=== PATIENT | female | born 1960 | race Caucasian/White ===

== ENCOUNTER 2020-06-22 15:52 | Outpatient (REF) | payer BC, SELFPAY ==
--- NOTE | ~2020-06-22 | XR_ITS ---
EXAMINATION: XR ANKLE, RIGHT CLINICAL INFORMATION: Pain COMPARISON: None TECHNIQUE: AP, lateral, and mortise views of the right ankle. FINDINGS: Bone alignment is normal. No acute fracture or dislocation is seen. There are well-corticated soft tissue ossifications inferior to the medial and lateral malleolar likely related to old trauma. There is an osteophyte at the anterior tibiotalar joint. The ankle mortise is otherwise normal. There is a soft tissue calcification posterior to the calcaneus. There is calcaneal spurs. There may be diffuse soft tissue swelling. XR/XR ankle RT 2V IMPRESSION: No acute fracture or dislocation seen. 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
[2020-06-22 18:39] LABS: Uric Acid 4.9 mg/dL (2.4-5.7)
== END 2020-06-22 15:53 | disposition home or self-care (01) ==
LOC: HO.MANLDS 15:52
PROVIDERS: PCP Internal Medicine; Visit Provider Physician Assistant
DX: M25.571 Pain in right ankle and joints of right foot (principal)
CPT/HCPCS: 36415; 73600; 84550

== ENCOUNTER → 2020-06-28 09:38 | Outpatient (BNVA) | payer BC, SELFPAY | PROVIDERS: PCP Internal Medicine; Visit Provider Internal Medicine Cardiovascular Disease | DX: E78.5 Hyperlipidemia, unspecified (principal) | CPT/HCPCS: 93005 ==

== ENCOUNTER 2020-07-09 09:40 | Outpatient (REF) | payer BC, SELFPAY ==
[2020-07-09 11:28] LABS: MANUAL DIFF FLAG NO
[2020-07-09 11:45] LABS: Basophils Percent Auto 0.7 % (0-2); Eosinophils Absolute Auto 0.2 X10*3/uL (0.0-0.4); Eosinophils Percent Auto 2.9 % (0-4); Hematocrit 39.4 % (37-47); Imm Gran Abs Auto 0.01 X10*3/uL (0.00-0.03); Imm Gran Pct Auto 0.2 % (0.0-0.4); Lymphocytes Percent Auto 19.1 % (20-40); Mean Corpuscular Hemoglobin 31.8 pg (27.0-33.0); Mean Corpuscular Volume 96.3 fL (80-98); Mean Platelet Volume 10.5 fL (9.4-12.3); Monocytes Absolute Auto 0.5 X10*3/uL (0.1-1.2); Monocytes Percent Auto 8.3 % (2-11); Neutrophils Absolute Auto 3.8 X10*3/uL (2.0-8.3); Neutrophils Percent Auto 68.8 % (45-73); Platelet Count 209 X10*3/uL (160-400); Red Blood Count 4.09 X10*6/uL (4.20-5.50); Red Cell Distribution Width 13.1 % (11.0-16.0); White Blood Count 5.5 X10*3/uL (4.8-10.8)
[2020-07-09 12:14] LABS: Alanine Aminotransferase 22 U/L (0-31); Albumin Level 4.1 g/dL (3.5-5.0); Alkaline Phosphatase 83 U/L (39-117); Anion Gap 14 (12-20); Aspartate Amino Transferase 18 U/L (5-31); Bilirubin Total 1.7 mg/dL (0.0-1.0); Blood Urea Nitrogen 12 mg/dL (9-16); Carbon Dioxide 24 mmol/L (22-29); Chloride 108 mmol/L (96-108); Cholesterol 151 mg/dL; Estimated Glomerular Filt Rate > 60; Free T4 (Free Thyroxine) 0.99 ng/dL (0.71-1.85); Glucose Fasting 97 mg/dL (60-99); HDL Cholesterol 56 mg/dL; LDL Cholesterol Calculated 69 mg/dl; Sodium 142 mmol/L (135-145); Thyroid Stimulating Hormone 1.84 uIU/mL (0.32-4.0); Total Protein 6.7 g/dL (6.5-8.0); Triglycerides 132 mg/dL
== END 2020-07-09 09:41 | disposition home or self-care (01) ==
LOC: HO.MANLDS 09:40
PROVIDERS: PCP Internal Medicine; Visit Provider Physician Assistant
DX: Z00.00 Encounter for general adult medical examination without abnormal findings (principal)
CPT/HCPCS: 36415; 80053; 80061; 84439; 84443; 85025

== ENCOUNTER 2020-09-10 11:48 | Outpatient (REF) | payer BC, SELFPAY ==
--- NOTE | ~2020-09-10 | MM_ITS ---
EXAMINATION: MM SCREENING DIGITAL BREAST TOMOSYNTHESIS, BILATERAL CLINICAL INFORMATION: Screening. Asymptomatic. The lifetime risk of breast cancer based on the Tyrer-Cuzick Model is 9%. COMPARISON: Mammography: 08/22/2019, 04/23/2018, 04/19/2018, 04/09/2017 TECHNIQUE: Digital breast tomosynthesis is performed in both the craniocaudal and mediolateral oblique views along with computer-aided detection (CAD). Synthesized 2D images are generated from the tomosynthesis. Additional right CC view is provided. FINDINGS: There are scattered areas of fibroglandular density (ACR BI-RADS breast composition Category b). There are no significant masses, abnormal calcifications, or other abnormalities. Parenchymal pattern is similar to prior exams. No developing density. The axilla and skin contours are unremarkable. MM/MM tomosynthesis screening BI IMPRESSION: No mammographic evidence of malignancy. ASSESSMENT: BI-RADS 1: Negative RECOMMENDATION: Routine annual mammography screening. This patient's information was entered into a reminder system with a target due date for their next mammogram.
== END 2020-09-10 11:49 | disposition home or self-care (01) ==
LOC: HO.MAMMO 11:48
PROVIDERS: Visit Provider Internal Medicine
DX: Z12.31 Encounter for screening mammogram for malignant neoplasm of breast (principal)
CPT/HCPCS: 77063; 77067

== ENCOUNTER 2021-09-13 09:28 | Outpatient (REF) | payer BC, SELFPAY ==
--- NOTE | ~2021-09-13 | MM_ITS ---
EXAMINATION: MM SCREENING DIGITAL BREAST TOMOSYNTHESIS, BILATERAL CLINICAL INFORMATION: Screening. Asymptomatic. The lifetime risk of breast cancer based on the Tyrer-Cuzick Model is 8%. COMPARISON: Mammography: 09/10/2020, 08/22/2019, 04/23/2018, 04/19/2018 TECHNIQUE: Digital breast tomosynthesis is performed in both the craniocaudal and mediolateral oblique views along with computer-aided detection (CAD). Synthesized 2D images are generated from the tomosynthesis. FINDINGS: There are scattered areas of fibroglandular density (ACR BI-RADS breast composition Category b). There are no significant masses, abnormal calcifications, or other abnormalities. Parenchymal pattern is similar to prior studies. There is no developing density or architectural abnormality. The axilla and skin contours are unremarkable. No significant changes. MM/MM tomosynthesis screening BI IMPRESSION: No mammographic evidence of malignancy. ASSESSMENT: BI-RADS 1: Negative RECOMMENDATION: Routine annual mammography screening. This patient's information was entered into a reminder system with a target due date for their next mammogram.
== END 2021-09-13 09:29 | disposition home or self-care (01) ==
LOC: HO.MAMMO 09:28
PROVIDERS: Visit Provider Internal Medicine
DX: Z12.31 Encounter for screening mammogram for malignant neoplasm of breast (principal)
CPT/HCPCS: 77063; 77067

== ENCOUNTER 2021-12-16 09:27 | Outpatient (REF) | payer BC, SELFPAY ==
[2021-12-16 11:28] LABS: MANUAL DIFF FLAG NO
[2021-12-16 11:44] LABS: Basophils Percent Auto 0.5 % (0-2); Eosinophils Absolute Auto 0.1 X10*3/uL (0.0-0.4); Eosinophils Percent Auto 2.2 % (0-4); Hemoglobin 13.8 g/dl (12.0-16.0); Imm Gran Abs Auto 0.02 X10*3/uL (0.00-0.03); Imm Gran Pct Auto 0.3 % (0.0-0.4); Lymphocytes Absolute Auto 1.3 X10*3/uL (1.2-4.9); Lymphocytes Percent Auto 21.3 % (20-40); Mean Corpuscular HGB Conc 33.7 g/dl (31.0-35.0); Mean Corpuscular Hemoglobin 32.5 pg (27.0-33.0); Mean Corpuscular Volume 96.7 fL (80.0-98.0); Mean Platelet Volume 10.6 fL (9.4-12.3); Monocytes Absolute Auto 0.6 X10*3/uL (0.1-1.2); Monocytes Percent Auto 10.1 % (2-11); Neutrophils Absolute Auto 3.8 x10*3/uL (2.0-8.3); Neutrophils Percent Auto 65.6 % (45-73); Platelet Count 212 X10*3/uL (160-400); Red Blood Count 4.24 X10*6/uL (4.20-5.50); Red Cell Distribution Width 12.8 % (11.0-16.0); White Blood Count 5.9 X10*3/uL (4.8-10.8)
[2021-12-16 12:25] LABS: Free T4 (Free Thyroxine) 1.04 ng/dL (0.71-1.85); Thyroid Stimulating Hormone 1.32 uIU/mL (0.32-4.0)
[2021-12-16 12:44] LABS: Alanine Aminotransferase 17 U/L (0-31); Albumin Level 4.4 g/dL (3.5-5.0); Alkaline Phosphatase 95 U/L (39-117); Anion Gap 14 (12-20); Aspartate Amino Transferase 15 U/L (5-31); Bilirubin Total 1.8 mg/dL (0.0-1.0); Blood Urea Nitrogen 13 mg/dL (9-16); Calcium 9.3 mg/dL (8.4-10.2); Carbon Dioxide 27 mmol/L (22-29); Chloride 105 mmol/L (96-108); Cholesterol 151 mg/dL; Estimated Glomerular Filt Rate > 60; Glucose Random 97 mg/dL (60-115); HDL Cholesterol 59 mg/dL; LDL Cholesterol Calculated 73 mg/dl; Potassium 4.1 mmol/L (3.3-5.1); Sodium 142 mmol/L (135-145); Total Protein 7.2 g/dL (6.5-8.0); Triglycerides 99 mg/dL
== END 2021-12-16 09:28 | disposition home or self-care (01) ==
LOC: HO.WFDLDS 09:27
PROVIDERS: Visit Provider Physician Assistant
DX: Z00.00 Encounter for general adult medical examination without abnormal findings (principal); E00.0 Congenital iodine-deficiency syndrome, neurological type
CPT/HCPCS: 36415; 80053; 80061; 84439; 84443; 85025

== ENCOUNTER 2022-03-08 09:22 | Day surgery (SDC) | payer BC, SELFPAY ==
[2022-03-08 06:09] VITALS: BMI 39.9
[2022-03-08 09:24] VITALS: BP 165/95; PULSE 93; RESP 18; TEMP 36.9; O2SAT 98
[2022-03-08] MEDS: Lactated Ringers 1,000 ML 50 ML IVCONT (09:49)
--- NOTE | 2022-03-08 09:49 | P.CONAN_ITS ---
HPI - Anesthesia Eval Consult details Narrative: 61 year old obese female for colon screen PMF Active Problems Active Problems: All Active Problems (Updated 03/07/22 @ 14:04 by Amy Welch RN) Hyperlipidemia (Acute) Past Medical History Medical History (Updated 03/07/22 @ 14:04 by Amy Welch RN) Hyperlipidemia Hypothyroidism Leg pain Sleep apnea with use of continuous positive airway pressure (CPAP) Family History Family History Father No problems noted. Mother No problems noted. Family history of problems with anesthesia: No Surgical History Surgical History (Updated 03/07/22 @ 14:04 by Amy Welch RN) H/O colonoscopy History of Problems with Anesthesia: No Social History Social History Patient Tobacco Use Status: Never used Tobacco Are you DNR?: No Advance Directives: No Advance Directives Information Provided: Yes Nutrition Risks: No Nutritional Risk Meds Allergies Allergy/AdvReac Type Severity Reaction Status Date / Time Sulfa (Sulfonamide Allergy Intermediate STOMACH Unverified 10/23/19 16:48 Antibiotics) UPSET [SULFA (SULFONAMIDE ANTIBIOTICS)] Active Medications: Current Medications Lactated Ringer's (Lr) 1,000 mls @ 50 mls/hr IVCONT .Q20H LAKISHA Last Admin: 03/08/22 09:49 Dose: 50 mls/hr Sodium Biphosphate/Sodium Phosphate (Sodium Phosphate,Blackford-Dibasic 133 Ml Enema) 133 ml NV ONCE PRN PRN Reason: Poor Colonoscopy Prep Results Home Medications Medication Instructions Recorded Confirmed Last Taken Type cholecalciferol (vitamin D3) 25 25 mcg PO DAILY 06/28/20 03/08/22 03/07/22 History mcg (1,000 unit) capsule coenzyme Q10 75 mg capsule (Ultra 150 mg PO DAILY 06/28/20 03/08/22 03/07/22 History CoQ10) levothyroxine 50 mcg tablet 50 mcg PO DAILY 06/28/20 03/08/22 03/07/22 History Exam Exam Date and Time: March 08, 2022 0949 Height,Weight and Vital Signs: Height 5 ft 3.5 in Weight 103.873 kg Last Vital Signs Temp 98.5 F 03/08/22 09:24 Pulse 93 02/01/23 09:24 Resp 18 03/08/22 09:24 BP 165/95 H 03/08/22 09:24 Pulse Ox 98 03/08/22 09:24 O2 Del Method 03/08/22 09:24 Airway Mallampati Class: II TM Dist: >3cm Neck ROM: Full Heart: rrr Lungs: cta Assessment and Plan Assessment Anesthesia Assessment: Anesthesia Plan Discussed and Chart Reviewed Final Anesthetic Review Family History of Problems with Anesthesia: No History of Problems with Anesthesia: No NPO: Yes ASA Class: II Final Preanesthetic Review: No Changes in Pt Med Stat, Meds/Allgs Chart Reviewed, Consent Obtained/Reviewed and Anes Risks/Benef Reviewed Patient Risk: Low Procedure Risk: Low Anesthetic Plan Anesthetic Plan: MAC: Disposition: Standard PACU
[2022-03-08 09:56] VITALS: BP 117/66
[2022-03-08 11:29] VITALS: BP 109/67; PULSE 73; RESP 17; TEMP 36.3; O2SAT 100
--- NOTE | 2022-03-08 11:31 | PM.OP ---
Brief Operative Note Date of Service: 03/08/22 Pre-op diagnosis: Screening Post-op diagnosis: other (Colon polyp) Procedure: Colonoscopy to the cecum and TI with bx/removal of polyp Surgeon: Damon Wood Anesthesia: MAC Was an Medical Social Worker used for this Procedure?: No Estimated blood loss (mL): 2.0 Pathology: other (A. Polyp at 40cm) Condition: stable Disposition: PACU
[2022-03-08 11:44] VITALS: BP 113/72; PULSE 67; RESP 16; TEMP 36.2; O2SAT 99
--- NOTE | 2022-03-08 19:53 | OP_ITS ---
SURGEON: Damon Wood MD INDICATIONS: The patient presents for evaluation of personal history of tubular adenoma of the colon and colorectal cancer screening. Full consent has been obtained from her for this, including risks of bleeding and perforation. PREOPERATIVE DIAGNOSIS: POSTOPERATIVE DIAGNOSIS: PROCEDURE PERFORMED: Colonoscopy to the cecum and terminal ileum with biopsy and removal of polyp ESTIMATED BLOOD LOSS: COMPLICATIONS: ANESTHESIA: Monitored anesthesia care. ASSISTANTS: SPECIMENS: PREOPERATIVE DIAGNOSES: Colorectal cancer screening and personal history of tubular adenoma of colon. POSTOPERATIVE DIAGNOSES: Colorectal cancer screening and personal history of tubular adenoma of colon, small colon polyp, diverticulosis, and internal hemorrhoids. DESCRIPTION OF PROCEDURE: The patient was placed in the left lateral decubitus position. The digital rectal exam revealed some external hemorrhoids. The Olympus video pediatric colonoscope was entered into the rectum and advanced easily to the cecum with assistance of abdominal wall pressure. Once in the cecum, I did identify normal-appearing cecal pouch with appendiceal orifice and normal-appearing ileocecal valve. The terminal ileum was cannulated and appeared normal. The scope was withdrawn back in the colon. The entire cecum and ileocecal valve appeared normal. The scope was slowly withdrawn assessing all mucosal surfaces carefully. Preparation was excellent. At 40 cm was a flat, approximately 4 mm polyp which was biopsied and removed completely with cold biopsy forceps. I did not visualize any other polyps, colitis, or angiodysplasias. There was a moderate amount of sigmoid diverticulosis. In the rectum, the scope was retroflexed visualizing internal hemorrhoids, but no other pathology. The rectal mucosa appeared normal. The scope was straightened and withdrawn from the patient. She tolerated the procedure well and was returned to the recovery area in stable condition. IMPRESSION: 1. Small colon polyp. 2. Diverticulosis. 3. Internal hemorrhoids. PLAN: The results of the biopsy will be checked. If this is a tubular adenoma, I would recommend a followup colonoscopy in 5 years. If it is only hyperplastic, I would then recommend a followup colonoscopy in 10 years given that her last exam in 2017 was negative as well and her only history is a previous small tubular adenoma removed back in 2011. This has been discussed with her . MD KLAUDIA Parada/DANIEL / [id number] EDSON
== END 2022-03-08 12:23 | disposition home or self-care (01) ==
PROVIDERS: PCP Internal Medicine; Visit Provider Internal Medicine
PROC: 0DJD8ZZ Inspection of Lower Intestinal Tract, Via Natural or Artificial Opening Endoscopic (ICD-10-PCS; CPT 45378; principal; 2022-03-08 10:30)
DX: Z12.11 Encounter for screening for malignant neoplasm of colon (principal); Z86.010 Personal history of colon polyps; D12.4 Benign neoplasm of descending colon; K57.30 Diverticulosis of large intestine without perforation or abscess without bleeding; K64.8 Other hemorrhoids; E03.9 Hypothyroidism, unspecified; G47.33 Obstructive sleep apnea (adult) (pediatric); Z99.89 Dependence on other enabling machines and devices; Z79.82 Long term (current) use of aspirin; Z79.899 Other long term (current) drug therapy; Z88.2 Allergy status to sulfonamides
CPT/HCPCS: 45380; 88305

== ENCOUNTER → 2022-06-26 09:12 | Outpatient (BNVA) | payer OTHER, SELFPAY | PROVIDERS: PCP Internal Medicine; Referring Provider Internal Medicine; Visit Provider Internal Medicine Cardiovascular Disease | DX: Z13.6 Encounter for screening for cardiovascular disorders (principal); E78.5 Hyperlipidemia, unspecified | CPT/HCPCS: 93005 ==

== ENCOUNTER 2022-09-18 07:28 | Outpatient (REF) | payer OTHER, SELFPAY ==
--- NOTE | ~2022-09-18 | MM_ITS ---
EXAMINATION: MM SCREENING DIGITAL BREAST TOMOSYNTHESIS, BILATERAL CLINICAL INFORMATION: Screening. Asymptomatic. COMPARISON: Mammography: 09/13/2021, 09/10/2020, and dating back to 2013. TECHNIQUE: Digital breast tomosynthesis is performed in both the craniocaudal and mediolateral oblique views along with computer-aided detection (CAD). Synthesized 2D images are generated from the tomosynthesis. FINDINGS: There are scattered areas of fibroglandular density (ACR BI-RADS breast composition Category b). There are no suspicious masses, suspicious grouped calcifications, or areas of architectural distortion. The parenchymal pattern is stable from prior exams. No skin changes. MM/MM tomosynthesis screening BI IMPRESSION: No mammographic evidence of malignancy. ASSESSMENT: BI-RADS BI-RADS 1 - Negative RECOMMENDATION: Routine annual mammography screening. 1 year F/U This examination should not preclude the clinical evaluation of a suspicious palpable abnormality. This patient's information was entered into a reminder system with a target due date for their next mammogram.
== END 2022-09-18 07:29 | disposition home or self-care (01) ==
LOC: HO.MAMMO 07:28
PROVIDERS: PCP Internal Medicine; Visit Provider Internal Medicine
DX: Z12.31 Encounter for screening mammogram for malignant neoplasm of breast (principal)
CPT/HCPCS: 77063; 77067

== ENCOUNTER → 2022-09-18 07:30 | Outpatient (BNV) | payer OTHER, SELFPAY | PROVIDERS: PCP Internal Medicine; Visit Provider Radiology Diagnostic Radiology | DX: Z12.31 Encounter for screening mammogram for malignant neoplasm of breast (principal) | CPT/HCPCS: 77063; 77067 ==

== ENCOUNTER 2023-01-09 08:15 | Outpatient (REF) | payer OTHER, SELFPAY ==
[2023-01-09 13:21] LABS: MANUAL DIFF FLAG NO
[2023-01-09 13:36] LABS: Basophils Percent Auto 0.5 % (0-2); Eosinophils Absolute Auto 0.2 X10*3/uL (0.0-0.4); Eosinophils Percent Auto 2.7 % (0-4); Hematocrit 41.6 % (37.0-47.0); Hemoglobin 13.5 g/dl (12.0-16.0); Imm Gran Abs Auto 0.02 X10*3/uL (0.00-0.03); Imm Gran Pct Auto 0.3 % (0.0-0.4); Lymphocytes Absolute Auto 1.2 X10*3/uL (1.2-4.9); Lymphocytes Percent Auto 19.8 % (20-40); Mean Corpuscular HGB Conc 32.5 g/dl (31.0-35.0); Mean Corpuscular Hemoglobin 31.6 pg (27.0-33.0); Mean Corpuscular Volume 97.4 fL (80.0-98.0); Mean Platelet Volume 10.4 fL (9.4-12.3); Monocytes Absolute Auto 0.5 X10*3/uL (0.1-1.2); Monocytes Percent Auto 8.4 % (2-11); Neutrophils Percent Auto 68.3 % (45-73); Platelet Count 222 X10*3/uL (160-400); Red Blood Count 4.27 X10*6/uL (4.20-5.50); White Blood Count 5.8 X10*3/uL (4.8-10.8)
[2023-01-09 13:41] LABS: Estimated Average Glucose 114 mg/dL; Hemoglobin A1c % 5.6 % (<6.0)
[2023-01-09 14:14] LABS: Alanine Aminotransferase 19 U/L (0-31); Alkaline Phosphatase 80 U/L (39-117); Anion Gap 13 (12-20); Aspartate Amino Transferase 19 U/L (5-31); Bilirubin Total 1.5 mg/dL (0.0-1.0); Blood Urea Nitrogen 13 mg/dL (9-16); Calcium 9.3 mg/dL (8.4-10.2); Carbon Dioxide 25 mmol/L (22-29); Chloride 107 mmol/L (96-108); Cholesterol 142 mg/dL (<200); Estimated Glomerular Filt Rate > 60; Glucose Random 99 mg/dL (60-115); HDL Cholesterol 57 mg/dL (>40); LDL Cholesterol Calculated 67 mg/dL (<100); Sodium 141 mmol/L (135-145); Total Protein 7.2 g/dL (6.5-8.0); Triglycerides 90 mg/dL (<150)
[2023-01-09 14:17] LABS: Free T4 (Free Thyroxine) 1.01 ng/dL (0.71-1.85); Thyroid Stimulating Hormone 1.86 uIU/mL (0.32-4.0)
== END 2023-01-09 08:16 | disposition home or self-care (01) ==
LOC: HO.MANLDS 08:15
PROVIDERS: Visit Provider Physician Assistant
DX: Z00.00 Encounter for general adult medical examination without abnormal findings (principal)
CPT/HCPCS: 36415; 80053; 80061; 83036; 84439; 84443; 85025

== ENCOUNTER 2023-09-20 07:58 | Outpatient (REF) | payer OTHER, SELFPAY ==
--- NOTE | ~2023-09-20 | MM_ITS ---
EXAMINATION: MM SCREENING DIGITAL BREAST TOMOSYNTHESIS, BILATERAL CLINICAL INFORMATION: Screening. Asymptomatic. COMPARISON: Mammography: This study is compared with prior exams dating back to 2010 TECHNIQUE: Digital breast tomosynthesis is performed in both the craniocaudal and mediolateral oblique views along with computer-aided detection (CAD). Synthesized 2D images are generated from the tomosynthesis. FINDINGS: There are scattered areas of fibroglandular density (ACR BI-RADS breast composition Category b). There are no significant masses, abnormal calcifications, or other abnormalities. MM/MM tomosynthesis screening BI IMPRESSION: No mammographic evidence of malignancy. ASSESSMENT: BI-RADS BI-RADS 1 - Negative RECOMMENDATION: Routine annual mammography screening. 1 year F/U This examination should not preclude the clinical evaluation of a suspicious palpable abnormality. This patient's information was entered into a reminder system with a target due date for their next mammogram. Electronically signed by: Chanelle Hernández MD 10/17/2023 01:06 PM EDT
== END 2023-09-20 07:59 | disposition home or self-care (01) ==
LOC: HO.MAMMO 07:58
PROVIDERS: PCP Internal Medicine; Visit Provider Internal Medicine
DX: Z12.31 Encounter for screening mammogram for malignant neoplasm of breast (principal)
CPT/HCPCS: 77063; 77067

== ENCOUNTER 2024-02-14 09:15 | Outpatient (REF) | payer OTHER, SELFPAY ==
--- NOTE | ~2024-02-14 | MM_ITS ---
EXAMINATION: Dual-Energy X-ray Absorptiometry - Bone Density Study HISTORY: Estrogen deficiency TECHNIQUE: [employer] Dual energy absorptiometry (DEXA) of the lumbar spine, total left hip, and femoral neck was performed. COMPARISON: Comparison is made with the prior examination dated 02/24/2016. FINDINGS: The bone mineral density of the lumbar spine is 1.298 with a T-score of 1.0, and a Z-score of 1.3. This represents a BMD change of 3.7% compared to the prior exam. This is statistically significant. The bone mineral density of the left total hip is 1.269 with a T-score of 2.1, and a Z-score of 2.3. This represents BMD change of 2.8% compared to the prior exam. The bone mineral density of the left femoral neck is 1.116 with a T-score of 0.6, and a Z-score of 1.2. This represents BMD change of 0.8% compared to the prior exam. This is not statistically significant. FRACTURE RISK: The FRAX index suggests a ten year probability of major osteoporotic fracture of 8.9%, and of hip fracture 0.1%. MM/XR DEXA axial skeleton IMPRESSION: Based on bone mineral density, and according to World Health Organization (WHO) criteria, the diagnosis is consistent with normal bone mineral density. All bone density values are in grams per centimeter squared. At this facility, the least significant change in BMD with 95% confidence is 0.022 at the lumbar spine, 0.027 at the hip, and 0.023 at the distal 1/3 radius. Electronically signed by: Damon Cunha MD 02/18/2024 07:58 AM [facility]
--- OUTSIDE RECORDS SUMMARY | 2024-02-14 09:30 | XMS_ITS | Patient Health Record ---
Author Organization [facility] Address [address] [place] [address] Care Team Providers Care Hanging Flags Decorator Name Role Phone Benja Fernandez Primary Care Provider Damon Flaherty [phone] ALLERGIES Allergen (clinical drug ingredient) Drug/Non Drug Allergy documented on EMR Reaction Allergy Type Onset Date Status Sulfa Unknown Drug Allergy Active REASON FOR REFERRAL No Information MEDICATIONS Medication SIG (Take, Route, Frequency, Duration) Notes Start Date End Date Status Levothyroxine Sodium .025mg Active Vitamin D 1000iu Act ambrose CoQ-10 100mg Active Rosuvastatin Calcium 20 MG TAKE ONE TABL ET(S) ONCE A DAY BY MOUTH Oral for 30 Active IMMUNIZATIONS Vaccine Route Administration Date Status Comme nts Influenza Unknown 10/06/2021 Administered SOCIAL HISTORY Sex Assigned At : Social History Observation Description Sex Assigned At Unknown PROBLEMS Problem Type ICD Code Onset Dates Problem Status W/U Status Risk SNOMED Code Notes Problem Colon cancer screening (Z12.11) Active confirmed 902376312 Problem Encounter for screening for malignant neoplasm of colon (Z12.11) Active confirmed 108454580 Problem History of adenomatous polyp of colon (Z86.010) Active confirmed 663775200 Problem Diverticulosis of large intestine without perforation or abscess without bleeding (K57.30) Active confirmed Diverticul ar disease of colon (159796701) Problem Preprocedural examination (Z01.818) Active confirmed 333825742 PLAN OF TREATMENT Future Test Test Name Order Date COLONOSCOPY 08/18/2011 COLONOSCOPY 07/19/2016 COLONOSCOPY 02/14/2022 Insurance Providers Payer Name Payer Address Payer Phone Subscriber Number Group Number Insured Name Patient Relationship to Insured Coverage Start Date Coverage End Date [facility] [employer] CLAIMS [address] [place] [address] [id number] BONNIE INDRA Self - patient is the insured MEDICAL (GENERAL) HISTORY Medical History History ICD Code Colonoscopy 02-22-2001--negat ambrose; colonoscopy in 09/2011--1 small tubular adenoma, diverticulosis, internal hemorrhoids Hypothyroidism Denies [place],DM,CVA,Lung disease,renal dise ase Sleep apnea, for which she uses a CPAP m achine Leg pain from misalignment of the spin e Negative colonoscopy in 11/2016 Surgical History Surgery Date(Month/Year)
== END 2024-02-14 09:16 | disposition home or self-care (01) ==
LOC: HO.MAMMO 09:15
PROVIDERS: PCP Internal Medicine; Visit Provider Physician Assistant
DX: M85.80 Other specified disorders of bone density and structure, unspecified site (principal); E28.39 Other primary ovarian failure
CPT/HCPCS: 77080

== ENCOUNTER → 2024-02-14 09:15 | Outpatient (BNV) | payer OTHER, SELFPAY | PROVIDERS: PCP Internal Medicine; Visit Provider Radiology Diagnostic Radiology | DX: M85.80 Other specified disorders of bone density and structure, unspecified site (principal) | CPT/HCPCS: 77080 ==

== ENCOUNTER 2024-07-25 09:21 | Outpatient (REF) | payer OTHER, SELFPAY ==
--- OUTSIDE RECORDS SUMMARY | 2024-07-25 09:39 | XMS_ITS | Patient Health Record ---
Author Organization [facility] Address [address] [place] [address] Care Team Providers Care Stitchdowns Toe Former Name Role Phone Benja Fernandez Primary Care Provider Damon Flaherty [phone] Allergies Allergen (clinical drug ingredient) Drug/Non Drug Allergy documented on EMR Reaction Allergy Type Onset Date Status Sulfa Unknown Drug Allergy Active Reason For Referral No Information Medications Medication SIG (Take, Route, Frequency, Duration) Notes Start Date End Date Status Levothyroxine Sodium .025mg Active Vitamin D 1000iu Act ambrose CoQ-10 100mg Active Rosuvastatin Calcium 20 MG TAKE ONE TABL ET(S) ONCE A DAY BY MOUTH Oral for 30 Active Immunizations Vaccine Route Administration Date Status Comme nts Influenza Unknown 10/06/2021 Administered Problems Problem Type SNOMED Code ICD Code Onset Dates Problem Status W/U Status Risk Notes Problem 219291157 Colon cancer screening (Z12.11) Active confirmed Problem 676723455 Encounter for screening for malignant neoplasm of colon (Z12.11) Active confirmed Problem 025662088 History of adenomatous polyp of colon (Z86.010) Active confirmed Problem Diverticulosis o f large intestine without perforation or abscess without bleeding (K57.30) Active confirmed Problem 266573978 Preprocedural examination (Z01.818) Active confirmed Plan Of Treatment Future Test Test Name Order Date COLONOSCOPY 08/18/2011 COLONOSCOPY 07/19/2016 COLONOSCOPY 02/14/2022 Insurance Providers Payer Name Payer Address Payer Phone Subscriber Number Group Number Insured Name Patient Relationship to Insured Coverage Start Date Coverage End Date [facility] [employer] [facility] [address] [place] [address] [id number] INDRA NICOLE Self - patient is the insured Medical (General) History Medical History History ICD Code Colonoscopy 02-22-2001--negat ambrose; colonoscopy in 09/2011--1 small tubular adenoma, diverticulosis, internal hemorrhoids Hypothyroidism Denies [place],DM,CVA,Lung disease,renal dise ase Sleep apnea, for which she uses a CPAP m achine Leg pain from misalignment of the spin e Negative colonoscopy in 11/2016 Surgical History Surgery Date(Month/Year)
[2024-07-25 13:50] LABS: MANUAL DIFF FLAG NO
[2024-07-25 13:58] LABS: Basophils Absolute Auto 0.1 X10*3/uL (0.0-0.2); Basophils Percent Auto 0.8 % (0-2); Eosinophils Absolute Auto 0.2 X10*3/uL (0.0-0.4); Eosinophils Percent Auto 2.6 % (0-4); Hematocrit 41.6 % (37.0-47.0); Hemoglobin 13.9 g/dl (12.0-16.0); Imm Gran Abs Auto 0.01 X10*3/uL (0.00-0.03); Imm Gran Pct Auto 0.2 % (0.0-0.4); Lymphocytes Absolute Auto 1.3 X10*3/uL (1.2-4.9); Lymphocytes Percent Auto 20.8 % (20-40); Mean Corpuscular HGB Conc 33.4 g/dl (31.0-35.0); Mean Corpuscular Hemoglobin 31.4 pg (27.0-33.0); Mean Corpuscular Volume 93.9 fL (80.0-98.0); Mean Platelet Volume 10.8 fL (9.4-12.3); Monocytes Absolute Auto 0.5 X10*3/uL (0.1-1.2); Monocytes Percent Auto 8.5 % (2-11); Neutrophils Absolute Auto 4.1 x10*3/uL (2.0-8.3); Neutrophils Percent Auto 67.1 % (45-73); Platelet Count 233 X10*3/uL (160-400); Red Blood Count 4.43 X10*6/uL (4.20-5.50); Red Cell Distribution Width 13.2 % (11.0-16.0); White Blood Count 6.2 X10*3/uL (4.8-10.8)
[2024-07-25 14:09] LABS: Estimated Average Glucose 120 mg/dL; Hemoglobin A1c % 5.8 % (<6.0)
[2024-07-25 14:31] LABS: Alanine Aminotransferase 21 U/L (0-31); Albumin Level 4.4 g/dL (3.5-5.0); Alkaline Phosphatase 84 U/L (39-117); Anion Gap 12 (12-20); Aspartate Amino Transferase 23 U/L (5-31); Bilirubin Total 1.6 mg/dL (0.0-1.0); Blood Urea Nitrogen 13 mg/dL (9-16); Calcium 9.5 mg/dL (8.4-10.2); Carbon Dioxide 25 mmol/L (22-29); Chloride 106 mmol/L (96-108); Cholesterol 148 mg/dL (<200); Estimated Glomerular Filt Rate > 60; Glucose Random 100 mg/dL (60-115); HDL Cholesterol 58 mg/dL (>40); LDL Cholesterol Calculated 71 mg/dL (<100); Potassium 3.9 mmol/L (3.3-5.1); Sodium 139 mmol/L (135-145); Total Protein 7.2 g/dL (6.5-8.0); Triglycerides 96 mg/dL (<150)
[2024-07-25 14:44] LABS: Vitamin B12 1522 pg/mL (200-900)
[2024-07-25 14:50] LABS: TSH reflex Free T4 1.55 uIU/mL (0.32-4.0); Vitamin D 25-OH Total 46.1 ng/mL (>30)
== END 2024-07-25 09:22 | disposition home or self-care (01) ==
LOC: HO.HMGCLDS 09:21
PROVIDERS: PCP Internal Medicine; Visit Provider Physician Assistant
DX: Z00.00 Encounter for general adult medical examination without abnormal findings (principal); Z13.1 Encounter for screening for diabetes mellitus; Z13.29 Encounter for screening for other suspected endocrine disorder; Z13.220 Encounter for screening for lipoid disorders; Z13.0 Encounter for screening for diseases of the blood and blood-forming organs and certain disorders involving the immune mechanism
CPT/HCPCS: 36415; 80053; 80061; 82306; 82607; 82746; 83036; 84443; 85025

== ENCOUNTER 2024-09-08 14:32 | Outpatient (AMB) | payer OTHER, SELFPAY ==
--- OUTSIDE RECORDS SUMMARY | 2024-09-08 14:35 | XMS_ITS | Encounter Summary ---
Author Organization [facility] Address [address] [place] [address] Phone Care Team Providers Care Skeet Operator Name Role Phone Benja Fernandez DO Primary Care Provider [phone] Benja Fernandez DO Unavailable Encounter Details Date Type Department Care Team (Late st Contact Info) Description 03/27/2018 Ancillary Orders Virtual Department [address] [place] [address] Joan Cedillo PA-C [address] [place] [address] Cough Social History Tobacco Use Types Packs/Day Years Used Date Smoking Tobacco: Never Assessed Comments Unknown Sex and Gender Information Value Date Recorded Sex Assigned at Not on file Legal Sex Female 4:26 PM EST Gender Identity Not on file Sexual Orientation Not on file documented as of this encounter Plan of Treatment Not on file documented as of this encounter Results * XR CHEST PA AND LATERAL 2 VIEWS (03/27/2018 5:10 PM EST) Anatomical Region Laterality Modality Chest Radiographic Maricruz ging 03/27/2018 5:23 PM EST Impressions 03/27/2018 5:23 PM EST Unremarkable plain film appearance of the chest. No acute process. - - - - - - - - - - - - - - - - - - - - - - - - - - - - - POS [id number] Narrative 03/27/2018 5:23 PM EST Two views. No comparison. - - - - - - - - - - - - - - - - - - - - - - - - - - - - - - - - - - - - - - - - - - Heart and mediastinum are normal in size and contour. No infiltrate, effusion or interstitial changes. No nodules or masses. No pneumothorax. No acute or worrisome bony abnormalities. Procedure Note Jean Rivera MD - 03/27/2018 Two views. No comparison. - - - - - - - - - - - - - - - - - - - - - - - - - - - - - - - - - - - - -- - - - - Heart and mediastinum are normal in size and contour. No infiltrate, effusion or interstitial changes. No nodules or masses. No pneumothorax. No acute or worrisome bony abnormalities. IMPRESSION: Unremarkable plain film appearance of the chest. No acute process. - - - - - - - - - - - - - - - - - - - - - - - - -- - - - POS [id number] May Nguyen TOUSSAINT IMG XR CHEST Final Result documented in this encounter Visit Diagnoses Diagnosis Cough Cough documented in this encounter Care Teams Skeet Operator Relationship Specialty Start Date End Date Benja Fernandez DO [email or web address] PCP - General Internal Medicine 03/27/18 Benja Fernandez DO [address] [place] [address] [email or web address] Insurance Assigned Provider 06/08/18 11/11/22 documented as of this encounter Additional Source Comments The information contained in this document represents components of the legal health record. It is not the complete legal health record.[facility]
--- OUTSIDE RECORDS SUMMARY | 2024-09-08 14:36 | XMS_ITS | Patient Health Record ---
Author Organization [facility] Address [address] [place] [address] Care Team Providers Care Metal Finisher Name Role Phone RichieBenja gibson Primary Care Provider Damon Flaherty [phone] Allergies Allergen (clinical drug ingredient) Drug/Non Drug [...] Problem Status W/U Status Risk Notes Problem 657972446 Colon cancer screening (Z12.11) Active confirmed Problem 262341759 Encounter for screening for malignant neoplasm of colon (Z12.11) Active confirmed Problem 199632323 History of adenomatous polyp of colon (Z86.010) Active confirmed Problem Diverticular disease of colon (552010407) Diverticulosis of large intestine without perforation or abscess without bleeding (K57.30) Active confirmed Problem 233119106 Preprocedural examination (Z01.818) Active confirmed Plan Of Treatment Future Test Test Name Order Date COLONOSCOPY 08/18/2011 COLONOSCOPY 07/19/2016 COLONOSCOPY 02/14/2022 Insurance Providers Payer Name Payer Address Payer Phone Subscriber Number Group Number Insured Name Patient Relationship to Insured Coverage Start Date Coverage End Date [facility] [employer] CLAIMS [address] [place] [address] [phone] [id number] MARAL NICOLEZABETH Self - patient is the insured Medical (General) History Medical History History ICD Code Colonoscopy 02-22-2001--negat ambrose; colonoscopy in 09/2011--1 small tubular adenoma, diverticulosis, internal hemorrhoids Hypothyroidism Denies [place],DM,CVA,Lung disease,renal dise ase Sleep apnea, for which she uses a CPAP m achine Leg pain from misalignment of the spin e Negative colonoscopy in 11/2016 Surgical History Surgery Date(Month/Year)
[2024-09-08 14:38] VITALS: BP 118/68; RESP 81; BMI 40.2
--- NOTE | 2024-09-08 14:38 | A.OFFVIS_ITS ---
Vital Signs 09/08/24 14:38 Height 5 ft 3 in Weight 227 lb 1.218 oz BMI 40.2 BP 118/68 Blood Pressure Location Lt brachial Position Sitting Respiration 81 H Intake Visit Reasons: r/s 07/07/24 2 yrs followup w/ekg dx: hyperlipidemia Intake Note: 2 year follow-up with ekg feeling good Digital Service Engineer Required: No Allergies Sulfa (Sulfonamide Antibiotics) (SULFA (SULFONAMIDE ANTIBIOTICS)) Allergy (Inter mediate, Verified 06/26/22 09:16) STOMACH UPSET Medication List - Last Reconciled 09/08/24 by Nam Ling MD cholecalciferol (vitamin D3) 25 mcg PO DAILY coenzyme Q10 (Ultra CoQ10) 150 mg PO DAILY levothyroxine 50 mcg PO DAILY rosuvastatin 20 mg PO DAILY HPI Comments Details: Rose comes for follow-up. This is a 2 year follow-up. She has no current cardiac symptoms with her usual activity. However she does not exercise as much as she was stool because of pain in her feet. However she has not had any exertional chest pain or shortness of breath. Recent LDL at 71 mg/dL. She has been taking her medications with rosuvastatin without any issues. No other complaints. Also has not been able to lose much weight. [facility] Medical History Leg pain Sleep apnea with use of continuous positive airway pressure (CPAP) Hypothyroidism Hyperlipidemia Surgical History H/O colonoscopy Family History Father No problems noted. Mother No problems noted. Social History Patient Tobacco Use Status: Never used Tobacco Review of Systems Const Denies chills, Denies fatigue, Denies fever(s), Denies frequent falls, Denies weakness, Denies weight gain and Denies weight loss ENT Denies dizziness Card Denies chest pain, Denies leg edema, Denies lightheadedness, Denies palpitations, Denies dyspnea, Denies dyspnea on exertion, Denies orthopnea and Denies other (loss of consciousness) Resp Denies cough, Denies dyspnea and Denies dyspnea on exertion GI Denies hematochezia and Denies change in stool character Musc Denies abnormal gait, Denies muscle weakness, Denies numbness, Denies radiating pain into limb and Denies tingling Neuro Denies abnormal gait, Denies dizziness, Denies frequent falls, Denies numbness, Denies tingling and Denies weakness Endo Denies fatigue and Denies palpitations Physical Exam Vital Signs: Last Vital Signs Resp 81 H 09/08/24 14:38 BP 118/68 09/08/24 14:38 BMI result Body Mass Index 40.2 Const General: cooperative, comfortable, no acute distress, alert and awake Nutritional Appearance: obese Orientation/consciousness: patient oriented x3 Limitations: no limitations Neck Neck: Yes trachea midline and Yes supple Carotids: no bruits Resp Effort & Inspection: normal respiratory effort Auscultation: clear to auscultation bilaterally Cardio Jugular venous distension: no JVD Palpation: normal PMI Rate: regular rate Rhythm: regular rhythm Heart sounds: S1 normal heart sound present and S2 normal heart sound present GI Auscultation: normal bowel sounds Neuro General: patient oriented x3 and no focal motor deficits Extrem General: Yes no clubbing, cyanosis or edema Psych Appearance: grossly normal Office Procedures EKG Details: EKG shows normal sinus rhythm normal EKG at 81 beats per minute 69653-[id number], Complete Assessment & Plan Assessment & Plan (1) Hyperlipidemia: Code(s): E78.5 - Hyperlipidemia, unspecified Category: Medical Plan: Hyperlipidemia with strong family history for premature coronary artery disease with 0 calcium score 6 years ago. Will repeat calcium score in near future to assess any progression of atherosclerosis despite aggressive lipid modification. Further treatment based on the finding. Would advised to continue current rosuvastatin therapy at 20 mg daily. Advised to participate in aggressive lifestyle modification with aggressive weight loss program increase activity level. She understands and agrees. Follow up in the clinic in 2 years time, sooner p.r.n.. Thank you for allowing me to partake in her care Orders: Orders CT Coronary Calcium Score 1 Week E78.5 - Hyperlipidemia, unspecified Medications: Refilled rosuvastatin 20 mg PO DAILY 90 tabs 3RF Coding Level of Care Code Est Pt Level 3 (98181) Complex EM visit Add On G2211 Diagnoses Hyperlipidemia E78.5 CPT Codes EKG - CPT: 66998-Anbptszhglvphituo, Complete ([id number])
== END 2024-09-08 15:02 | disposition home or self-care (01) ==
LOC: HO.HCS 14:33
PROVIDERS: PCP Internal Medicine; Visit Provider Internal Medicine Cardiovascular Disease
DX: E78.5 Hyperlipidemia, unspecified (principal)
CPT/HCPCS: 93010; 99213

== ENCOUNTER → 2024-09-08 14:32 | Outpatient (BNVA) | payer OTHER, SELFPAY | PROVIDERS: PCP Internal Medicine; Visit Provider Internal Medicine Cardiovascular Disease | DX: E78.5 Hyperlipidemia, unspecified (principal) | CPT/HCPCS: 93005 ==

== ENCOUNTER 2024-09-25 07:43 | Outpatient (REF) | payer OTHER, SELFPAY ==
--- OUTSIDE RECORDS SUMMARY | 2024-09-25 07:46 | XMS_ITS | Patient Health Record ---
Author Organization [facility] Address [address] [place] [address] Care Team Providers Care Telecommunications Engineer Name Role Phone RichieBenja gibson Primary Care Provider Damon Flaherty [phone] Allergies Allergen (clinical drug ingredient) Drug/Non Drug [...] Problem Status W/U Status Risk Notes Problem 474530963 Colon cancer screening (Z12.11) Active confirmed Problem 730178445 Encounter for screening for malignant neoplasm of colon (Z12.11) Active confirmed Problem 845232621 History of adenomatous polyp of colon (Z86.010) Active confirmed Problem Diverticular disease of colon (803656590) Diverticulosis of large intestine without perforation or abscess without bleeding (K57.30) Active confirmed Problem 327182933 Preprocedural examination (Z01.818) Active confirmed Plan Of Treatment Future Test Test Name Order Date COLONOSCOPY 08/18/2011 COLONOSCOPY 07/19/2016 COLONOSCOPY 02/14/2022 Insurance Providers Payer Name Payer Address Payer Phone Subscriber Number Group Number Insured Name Patient Relationship to Insured Coverage Start Date Coverage End Date [facility] [address] [place] [address] [phone] [id number] MARAL NICOLEZABETH Self - patient is the insured Medical (General) History Medical History History ICD Code Colonoscopy 02-22-2001--negat ambrose; colonoscopy in 09/2011--1 small tubular adenoma, diverticulosis, internal hemorrhoids Hypothyroidism Denies [place],DM,CVA,Lung disease,renal dise ase Sleep apnea, for which she uses a CPAP m achine Leg pain from misalignment of the spin e Negative colonoscopy in 11/2016 Surgical History Surgery Date(Month/Year)
--- OUTSIDE RECORDS SUMMARY | 2024-09-25 07:46 | XMS_ITS | Encounter Summary ---
Author Organization [facility] Address [address] [place] [address] Phone Care Team Providers Care Store Assistant Name Role Phone Benja Fernandez DO Primary Care Provider [phone] Benja Fernandez DO Unavailable Encounter Details Date Type Department Care Team (Late st Contact Info) Description 03/27/2018 Ancillary Orders Virtual Department [address] [place] [address] Joan Cedillo PA-C [address] [place] [address] Cough Social History Tobacco Use Types Packs/Day [...] - - - - - - POS [id number] Narrative 03/27/2018 5:23 PM EST Two views. [...] - - -- - - - POS [id number] May Nguyen TOUSSAINT IMG XR CHEST Final Result documented in this encounter Visit Diagnoses Diagnosis Cough Cough documented in this encounter Care Teams Store Assistant Relationship Specialty Start Date End Date Benja Fernandez DO [email or web address] PCP - General Internal Medicine 03/27/18 Benja Fernandez DO [address] [place] [address] [email or web address] Insurance Assigned Provider 06/08/18 11/11/22 documented as of this encounter Additional Source Comments The information contained in this document represents components of the legal health record. It is not the complete legal health record.[facility]
== END 2024-09-25 07:44 | disposition home or self-care (01) ==
LOC: HO.MAMMO 07:43
PROVIDERS: PCP Internal Medicine; Visit Provider Internal Medicine
DX: Z12.31 Encounter for screening mammogram for malignant neoplasm of breast (principal)
CPT/HCPCS: 77063; 77067

== ENCOUNTER → 2024-09-25 07:45 | Outpatient (BNV) | payer OTHER, SELFPAY | PROVIDERS: PCP Internal Medicine; Visit Provider Internal Medicine | DX: Z12.31 Encounter for screening mammogram for malignant neoplasm of breast (principal) | CPT/HCPCS: 77063; 77067 ==

== ENCOUNTER 2024-12-02 16:01 | Emergency (ER) | payer OTHER, SELFPAY ==
--- NOTE | ~2024-12-02 | CT_ITS ---
CLINICAL HISTORY: LLQ pain CT abdomen and pelvis with contrast Comparison: CR/SR - XR ABDOMEN 1 VIEW (KUB) - 12/02/24 16:35 EDT Findings: No consolidation or effusion. Large hiatal hernia. The gallbladder and solid organs are within normal limits. No renal stones. No bowel obstruction, pneumoperitoneum, or pneumatosis. Left distal descending colon moderate circumferential wall thickening and moderate surrounding fat stranding along with diverticulosis. No adjacent fluid collection or abscess. Pelvic contents unremarkable. Normal appendix. The bones are intact. IMPRESSION: Acute uncomplicated diverticulitis of the distal descending colon. Large hiatal hernia. This document has been electronically signed by: Maximiliano Estrada MD on 12/02/2024 22:08:08
--- NOTE | ~2024-12-02 | XR_ITS ---
EXAMINATION: XR ABDOMEN KUB CLINICAL INDICATION: abdominal pain. consitpation COMPARISON: None available. TECHNIQUE: AP view of the abdomen. FINDINGS: The bowel gas pattern is normal with no evidence of ileus or obstruction. No unusual soft tissue calcifications are noted. Degenerative sclerosis, cystic change, and irregularity is noted the pubic symphysis joint. XR/XR KUB IMPRESSION: Unremarkable examination. Electronically signed by: Osmany Tobar MD 12/02/2024 04:41 PM EDT
[2024-12-02 16:05] VITALS: BP 147/73; PULSE 87; RESP 18; TEMP 36.7; O2SAT 96; BMI 40.8
--- NOTE | 2024-12-02 16:16 | ED.GENADULT ---
HPI - General Adult General Chief complaint: Abdominal Pain Stated complaint: Abdominal pain Time Seen by Provider: 12/02/24 19:39 Source: patient, RN notes reviewed and old records reviewed Mode of arrival: ambulatory Limitations: no limitations History of Present Illness ED Provider: Choco TREVIÑO narrative: 64-year-old female with a past medical history significant for obesity, hyperlipidemia presents for evaluation abdominal pain. She reports her pain started on Sunday, 3 days ago. Her pain is mostly isolated to the left lower quadrant pain She reports associated constipation. Denies any diarrhea, black or bloody stool. She reports that she does have a history of intermittent constipation. She tried some Dulcolax without any improvement in her symptoms pain Denies any history abdominal surgeries Denies any sick contacts or recent travel. Her pain is moderate, 5/10 Denies any vomiting Related Data Home Medications ?Medication ?Instructions ?Recorded ?Confirmed cholecalciferol (vitamin D3) 25 25 mcg PO DAILY 06/28/20 09/08/24 mcg (1,000 unit) capsule coenzyme Q10 75 mg capsule (Ultra 150 mg PO DAILY 06/28/20 09/08/24 CoQ10) levothyroxine 50 mcg tablet 50 mcg PO DAILY 06/28/20 09/08/24 Previous Rx's ?Medication ?Instructions ?Recorded rosuvastatin 20 mg tablet 20 mg PO DAILY #90 tabs 09/22/24 amoxicillin 875 mg-potassium 1 tab PO Q12H #14 tabs 12/02/24 clavulanate 125 mg tablet Allergies Allergy/AdvReac Type Severity Reaction Status Date / Time Sulfa (Sulfonamide Allergy Intermediate STOMACH Verified 12/02/24 16:13 Antibiotics) (SULFA UPSET (SULFONAMIDE ANTIBIOTICS)) Review of Systems Constitutional: Constitutional: Denies body ache(s), Denies chills, Denies fever(s) and Denies headache(s) Eyes: Eyes: Denies blurry vision ENT: Denies vertigo, Denies dizziness, Denies dry mouth and Denies headache(s) Cardiovascular: Cardiovascular: Denies chest pain and Denies dyspnea on exertion Respiratory: Respiratory: Denies cough and Denies dyspnea on exertion Gastrointestinal: Gastrointestinal: Reports abdominal pain, Denies melena, Denies hematochezia, Reports diarrhea, Reports loose stools, Denies nausea and Denies vomiting Musculoskeletal: Musculoskeletal: Denies back pain Integumentary/Breasts: Skin/Breast: Denies rash Neurologic: Denies vertigo, Denies dizziness and Denies headache(s) [facility] Past Medical History Medical History Leg pain Sleep apnea with use of continuous positive airway pressure (CPAP) Hypothyroidism Hyperlipidemia Surgical History H/O colonoscopy Family History Family History Father No problems noted. Mother No problems noted. Social History Social History Patient Tobacco Use Status: Never used Tobacco Smoked in Last 30 Days: No Use of substances other than those prescribed or required for medical reasons: No Advance Directives: No Advance Directives Information Provided: No Patient : No Physical Exam ED Vital Signs: Vital Signs - 24 hr 12/02/24 16:05 12/02/24 19:03 12/02/24 22:34 Temperature 98.1 F 97.7 F 97.7 F Pulse Rate 87 81 81 Respiratory Rate 18 16 16 Blood Pressure 147/73 H 138/80 138/80 Pulse Oximetry 96 96 96 Oxygen Delivery Method Room Air Room Air Room Air BMI result Body Mass Index 40.8 Const General: healthy appearing, comfortable, no acute distress, alert and awake Nutritional Appearance: well nourished Orientation/consciousness: patient oriented x3 HENMT Head: Yes normocephalic and Yes atraumatic Eyes Eyelids: Yes eyelids normal Conjunctivae: conjunctivae normal Sclerae: sclerae normal Corneas: corneas normal Pupils: Equal, round and reactive pupils present EOM: EOMs intact bilaterally Neck Neck: Yes full ROM Resp Effort & Inspection: normal respiratory effort, able to speak in complete sentences and not labored Cardio Rate: regular rate Rhythm: regular rhythm GI Inspection: No distended Palpation (GI): Soft to palpation, not firm, Tenderness to palpation present (GI) in the LLQ and suprapubicly, no guarding and not rigid Skin General skin exam: elasticity normal Neuro General: patient oriented x3 Cranial nerves: Yes Equal, round and reactive pupils present and Yes Bilaterally intact EOM present Cognition (Neuro): normal cognition Extrem Other: Moving all extremities well without any obvious deformities Course Course Course Narrative: RME: 64 year female presents to ED for left lower quadrant pain radiating to right lower quadrant with constipation since Sunday. Patient states not able to pass stool or gas. Labs KUB UA ordered Medications Administered Discontinued Medications Generic Name Dose Route Start Last Admin Trade Name Arturoq PRN Reason Stop Dose Admin Amoxicillin/Clavulanate Potassium 875 mg 12/02/24 22:21 12/02/24 22:26 Amoxicillin/Potassium Clav 875 Mg Tablet PO 12/02/24 22:22 875 mg ONCE ONE Administration Iohexol 100 ml 12/02/24 20:41 12/02/24 20:43 Iohexol 350 Mg/Ml 100 Ml Infus..Btl IV 12/02/24 20:42 100 ml ONCE ONE Administration Medical Decision Making Medical Decision Making [facility] Narrative: 64-year-old female presents for evaluation of left lower quadrant abdominal pain for the last 3 days. She had associated constipation. Denies any black or bloody stool. She has no history abdominal surgeries, less likely bowel obstruction. Denies any risk factors for C diff. No recent travel or antibiotic use. She is quite tender left lower quadrant. Her abdomen is soft, nondistended. There was no rebound[place] [address]. Plan for a CT scan abdomen pelvis to evaluate for acute diverticulitis versus colitis. She does report having had colitis once in the past. She does not meet sepsis criteria Differential Diagnosis Differential Diagnoses: The differential diagnosis associated with the presentation includes Constipation Diverticulitis Colitis Abdominal pain Bowel obstruction Lab Data [facility] Lab Attestation statement: I reviewed the patient[place] [address], no anemia. Normal platelet count. No electrolyte abnormalities warranting intervention. 12/02/24 16:54 12/02/24 16:54 Labs: Lab Results 12/02/24 12/02/24 Range/Units 16:54 19:17 WBC 13.1 H (4.8-10.8) X10*3/uL RBC 4.41 (4.20-5.50) X10*6/uL Hgb 14.0 (12.0-16.0) g/dl Hct 41.2 (37.0-47.0) % MCV 93.4 (80.0-98.0) fL MCH 31.7 (27.0-33.0) pg MCHC 34.0 (31.0-35.0) g/dl RDW 12.5 (11.0-16.0) % Plt Count 233 (160-400) X10*3/uL MPV 9.7 (9.4-12.3) fL Immature Gran % (Auto) 0.5 H (0.0-0.4) % Neut % (Auto) 78.9 H (45-73) % Lymph % (Auto) 10.5 L (20-40) % Barren % (Auto) 8.2 (2-11) % Eos % (Auto) 1.7 (0-4) % Baso % (Auto) 0.2 (0-2) % Lymph # (Auto) 1.4 (1.2-4.9) X10*3/uL Barren # (Auto) 1.1 (0.1-1.2) X10*3/uL Eos # (Auto) 0.2 (0.0-0.4) X10*3/uL Baso # (Auto) 0.0 (0.0-0.2) X10*3/uL Abs Immat Gran (auto) 0.07 H (0.00-0.03) X10*3/uL Absolute Neuts (auto) 10.3 H (2.0-8.3) x10*3/uL Absolute Nucleated RBC 0.000 (0.0-0.012) X10*3/uL Nucleated RBC % (auto) 0.0 (0.0-0.2) /100WBC Sodium 139 (135-145) mmol/L Potassium 4.1 (3.3-5.1) mmol/L Chloride 106 (96-108) mmol/L Carbon Dioxide 26 (22-29) mmol/L Anion Gap 11 L (12-20) BUN 11 (9-16) mg/dL Creatinine 0.75 (0.5-1.4) mg/dL Estim Creat Clear Calc 87.6 Estimated GFR > 60 Random Glucose 114 (60-115) mg/dL Calcium 9.4 (8.4-10.2) mg/dL Total Bilirubin 1.8 H (0.0-1.0) mg/dL AST 19 (5-31) U/L ALT 20 (0-31) U/L Alkaline Phosphatase 97 (39-117) U/L Total Protein 7.5 (6.5-8.0) g/dL Albumin 4.2 (3.5-5.0) g/dL Urine Color Yellow Urine Appearance Clear Urine pH 6.0 (5.0-9.0) Ur Specific [place] 1.010 (1.005-1.025) Urine Protein Negative (Neg-Trace) mg/dL Urine Glucose (UA) Negative (Negative) mg/dL Urine Ketones Trace (Negative) mg/dL Urine Blood Negative (Negative) Urine Nitrite Negative (Negative) Ur Leukocyte Esterase Trace H (Negative) Urine RBC 0-2 (0-2) /HPF Urine WBC 0-5 (0-5) /HPF Ur Squamous Epith Cells 0-2 (0-2) /HPF Urine Bacteria None Seen (None Seen) Hyaline Casts 0-2 (0-2) /LPF Radiology Impression Discussion of test interpretation with radiology: I have reviewed the radiologist's reading. Radiologist Impression: Findings: No consolidation or effusion. Large hiatal hernia. The gallbladder and solid organs are within normal limits. No renal stones. No bowel obstruction, pneumoperitoneum, or pneumatosis. Left distal descending colon moderate circumferential wall thickening and moderate surrounding fat stranding along with diverticulosis. No adjacent fluid collection or abscess. Pelvic contents unremarkable. Normal appendix. The bones are intact. IMPRESSION: Acute uncomplicated diverticulitis of the distal descending colon. Large hiatal hernia. This document has been electronically signed by: Maximiliano Estrada MD on 12/02/2024 22:08:08 Discharge Plan Discharge Clinical Impression: Diverticulitis Patient Disposition: Home, Self-Care Instructions: Diverticulitis (ED) Additional Instructions: Your CT scan confirmed a diagnosis of acute diverticulitis. The treatment is a liquid diet for 2-3 days until her pain resolves. I do recommend taking Augmentin twice daily for 1 week. Follow up with your primary doctor, return for new or worsening symptoms, especially if you develop severe, worsening pain or fevers Prescriptions: New amoxicillin-pot clavulanate 875-125 mg tablet 1 tab PO Q12H Qty: 14 0RF No Action rosuvastatin 20 mg tablet 20 mg PO DAILY Qty: 90 3RF levothyroxine 50 mcg tablet 50 mcg PO DAILY Ultra CoQ10 75 mg capsule 150 mg PO DAILY cholecalciferol (vitamin D3) 25 mcg (1,000 unit) capsule 25 mcg PO DAILY Interventions: ED Discharge Assessment Last Done: 12/02/24 22:34 Discharge Date/Time: 12/02/24 22:35 Print Language: Yoruba
[2024-12-02 16:57] LABS: MANUAL DIFF FLAG NO
[2024-12-02 17:04] LABS: Hematocrit 41.2 % (37.0-47.0); Hemoglobin 14.0 g/dl (12.0-16.0); Imm Gran Abs Auto 0.07 X10*3/uL (0.00-0.03); Imm Gran Pct Auto 0.5 % (0.0-0.4); Lymphocytes Absolute Auto 1.4 X10*3/uL (1.2-4.9); Mean Corpuscular HGB Conc 34.0 g/dl (31.0-35.0); Mean Corpuscular Hemoglobin 31.7 pg (27.0-33.0); Mean Corpuscular Volume 93.4 fL (80.0-98.0); NRBC Abs Auto 0.000 X10*3/uL (0.0-0.012); NRBC Pct Auto 0.0 /100WBC (0.0-0.2); Platelet Count 233 X10*3/uL (160-400); Red Blood Count 4.41 X10*6/uL (4.20-5.50); White Blood Count 13.1 X10*3/uL (4.8-10.8)
[2024-12-02 17:14] LABS: Alanine Aminotransferase 20 U/L (0-31); Albumin Level 4.2 g/dL (3.5-5.0); Alkaline Phosphatase 97 U/L (39-117); Anion Gap 11 (12-20); Aspartate Amino Transferase 19 U/L (5-31); Blood Urea Nitrogen 11 mg/dL (9-16); Calcium 9.4 mg/dL (8.4-10.2); Carbon Dioxide 26 mmol/L (22-29); Chloride 106 mmol/L (96-108); Creatinine Clr Calc Pharmacy 87.6; Estimated Glomerular Filt Rate > 60; Potassium 4.1 mmol/L (3.3-5.1); Sodium 139 mmol/L (135-145); Total Protein 7.5 g/dL (6.5-8.0)
[2024-12-02 19:03] VITALS: BP 138/80; PULSE 81; RESP 16; TEMP 36.5; O2SAT 96
--- NOTE | 2024-12-02 19:20 | PC.NURSE ---
this RN assumed care of this pt @1900, pt noted to be laying semi - cueva's in hospital stretcher, urine sample collected and sent to lab, pt respirations even and unlabored, no apparent distress noted, call light provided for safety
[2024-12-02 19:46] LABS: Appearance Urine Clear; Glucose Urine UA Negative (Negative); PH 6.0 (5.0-9.0); Specific Gravity - Urine 1.010 (1.005-1.025); UMIC TRIGGER UACC YES
--- OUTSIDE RECORDS SUMMARY | 2024-12-02 20:21 | XMS_ITS | Clinical Summary ---
Author Organization [facility] Address [address] [place] [address] Phone Care Team Providers Care Planer Off Bearer Name Role Phone Benja Fernandez Patt TUTTLE Primary Care Provider [phone] Social History Tobacco Use Types Packs/Day Years Used Date Smoking Tobacco: Never Assessed Education Answer Date Recorded Are you interested in more education? Not on roberto e 06/02/2022 Are you concerned about learning? Not on file 06/02/2022 No 06/02/2022 No 06/02/2022 Digital Access Answer Date Recorded No 07/04/2022 No 07/04/2022 No 07/04/2022 Reliable internet access at home? Not on file 07/04/2022 Device with a working camera? Not on file Comments Unknown Sex and Gender Information Value Date Recorded Sex Assigned at Not on file Legal Sex Female 4:26 PM EST Gender Identity Not on file Sexual Orientation Not on file Plan of Treatment Not on file Medical Devices Not on file [facility] HMO POS Member Subscriber Plan / Payer (Ef fective 2008-Present) Name:Rose Nicole Relation to Subscriber:Spouse Name:ROMMEL NICOLE Date of :1956 (Home) Address: [place], [place] Payer ID:[id number] (NAIC) Type:HMO Address: [address] [place], [place] [facility] HMO POS Member Subscriber Plan / Payer (Ef fective 2008-Present) Name:Rose Nicole Relation to Subscriber:Spouse Name:ROMMEL NICOLE Date of :1956 (Home) Address: [place], [place] Payer ID:[id number] (NAIC) Type:HMO Address: [address] [place], [place] [facility] HMO POS [place], [place] [facility] HMO POS [place] [facility] HMO POS [facility]MO POS [facility] HMO POS [facility] Care Teams Planer Off Bearer Relationship Specialty Start Date End Date Benja Fernandez DO [email or web address] PCP - General Internal Medicine 03/27/18 Additional Source Comments The information contained in this document represents components of the legal health record. It is not the complete legal health record.[facility]
--- OUTSIDE RECORDS SUMMARY | 2024-12-02 20:21 | XMS_ITS | Encounter Summary ---
Author Organization [facility] Address [address] [place] [address] Phone Care Team Providers Care Mash Filter Cloth Changer Name Role Phone Benja Fernandez DO Primary Care Provider [phone] Benja Fernandez DO Unavailable Encounter Details Date Type Department Care Team (Late st Contact Info) Description 03/27/2018 Ancillary Orders Virtual Department [address] [place] [address] Joan Cedillo PA-C [address] [place] [address] [email or web address] Cough Social History Tobacco Use Types Packs/Day [...] - - - - - - POS [id number] Narrative 03/27/2018 5:23 PM EST Two views. [...] - - -- - - - POS [id number] May Nguyen TOUSSAINT IMG XR CHEST Final Result documented in this encounter Visit Diagnoses Diagnosis Cough Cough documented in this encounter Care Teams Mash Filter Cloth Changer Relationship Specialty Start Date End Date Benja Fernandez DO [email or web address] PCP - General Internal Medicine 03/27/18 Benja Fernandez DO [address] [place] [address] [email or web address] Insurance Assigned Provider 06/08/18 11/11/22 documented as of this encounter Additional Source Comments The information contained in this document represents components of the legal health record. It is not the complete legal health record.[facility]
--- OUTSIDE RECORDS SUMMARY | 2024-12-02 20:22 | XMS_ITS | Patient Health Record ---
Author Organization [facility] Address [address] [place] [address] Care Team Providers Care Brazer Controlled Atmospheric Furnace Name Role Phone Benja Fernandez Primary Care Provider Damon Flaherty [phone] Allergies Allergen (clinical drug ingredient) Drug/Non Drug [...] TABL ET(S) ONCE A DAY BY MOUTH Oral; Duration: 30 Active Immunizations Vaccine Route Administration Date Status Comme nts Influenza Unknown 10/06/2021 Administered Problems Problem Type SNOMED Code ICD Code Onset Dates Problem Status W/U Status Risk Notes Problem Colon cancer screening (750087249) Colon cancer screening (Z12.11) Active confirmed Problem Screening for malignant neoplasm of colon (734539350) Encounter for screening for malignant neoplasm of colon (Z12.11) Active confirmed Problem History of adenomatous polyp of colon (205348774) History of adenomatous polyp of colon (Z86.010) Active confirmed Problem Diverticular disease of colon (057728849) Diverticulosis of large intestine without perforation or abscess without bleeding (K57.30) Active confirmed Problem Preprocedural examination (554557887455603) Preprocedural examination (Z01.818) Active confirmed Plan Of Treatment Future Test Test Name Order Date COLONOSCOPY 08/18/2011 COLONOSCOPY 07/19/2016 COLONOSCOPY 02/14/2022 Insurance Providers Payer Name Payer Address Payer Phone Subscriber Number Group Number Insured Name Patient Relationship to Insured Coverage Start Date Coverage End Date [facility] BCBS PROFESSIONA L CLAIMS [address] [place] [address] [id number] BONNIE INDRA Self - patient is the insured Medical (General) History Medical History History ICD Code Colonoscopy 02-22-2001--negat ambrose; colonoscopy in 09/2011--1 small tubular adenoma, diverticulosis, internal hemorrhoids Hypothyroidism Denies [place],DM,CVA,Lung disease,renal dise ase Sleep apnea, for which she uses a CPAP m achine Leg pain from misalignment of the spin e Negative colonoscopy in 11/2016 Surgical History Surgery Date(Month/Year)
[2024-12-02] MEDS: iohexoL 350 MG/ML 100 ML INFUS..BTL IV (20:43)
[2024-12-02 22:34] VITALS: BP 138/80; PULSE 81; RESP 16; TEMP 36.5; O2SAT 96
== END 2024-12-02 22:35 | disposition home or self-care (01) ==
PROVIDERS: Physician Assistant; Emergency Provider Emergency Medicine; PCP Internal Medicine
DX: K57.32 Diverticulitis of large intestine without perforation or abscess without bleeding (principal); K44.9 Diaphragmatic hernia without obstruction or gangrene; R10.32 Left lower quadrant pain; K59.00 Constipation, unspecified
CPT/HCPCS: 36415; 74018; 74177; 80053; 81001; 85025; 99284; 99285; Q9967

== ENCOUNTER → 2024-12-02 16:15 | Outpatient (BNV) | payer OTHER, SELFPAY | PROVIDERS: PCP Internal Medicine; Visit Provider Radiology Diagnostic Radiology | DX: K57.92 Diverticulitis of intestine, part unspecified, without perforation or abscess without bleeding (principal); K44.9 Diaphragmatic hernia without obstruction or gangrene; R10.9 Unspecified abdominal pain; K59.00 Constipation, unspecified | CPT/HCPCS: 74018; 74177 ==

== ENCOUNTER 2025-01-15 06:55 | Outpatient (REF) | payer OTHER, SELFPAY ==
--- OUTSIDE RECORDS SUMMARY | 2025-01-15 06:58 | XMS_ITS | Patient Health Record ---
Author Organization [facility] Address [address] [place] [address] Care Team Providers Care Compressed Yeast Supervisor Name Role Phone Benja Fernandez Primary Care Provider Damon Flaherty [phone] Allergies Allergen (clinical drug ingredient) Drug/Non Drug Allergy documented on EMR Reaction Allergy Type Onset Date Status Sulfa Unknown Drug Allergy Active Reason For Referral No Information Medications Medication SIG (Take, Route, Frequency, Duration) Notes Start Date End Date Status Levothyroxine Sodium .025mg Active Vitamin D 1000iu Act ambrose CoQ-10 100mg Active Rosuvastatin Calcium 20 MG Tablet TAKE ONE TABLET(S) ONCE A DAY BY MOUTH Oral; Duration: 30 Active Immunizations Vaccine Route Administration Date Status Comme nts Influenza Unknown 10/06/2021 Administered Social History Social History Additional Details Category Social Info Options Details Miscellaneous: Marital status: Occupation: Financial analys t Section Notes: Nonsmoker; no significant al cohol use Nonsmoker; no significant al cohol use Nonsmoker; no significant al cohol use Problems Problem Type SNOMED Code ICD Code Onset Dates Problem Status W/U Status Risk Notes Problem Colon cancer screening (398521101) Colon cancer screening (Z12.11) Active confirmed Problem Screening for malignant neoplasm of colon (052222731) Encounter for screening for malignant neoplasm of colon (Z12.11) Active confirmed Problem History of adenomatous polyp of colon (180070137) History of adenomatous polyp of colon (Z86.010) Active confirmed Problem Diverticular disease of colon (085363701) Diverticulosis of large intestine without perforation or abscess without bleeding (K57.30) Active confirmed Problem Preprocedural examination (208731792072585) Preprocedural examination (Z01.818) Active confirmed Plan Of Treatment Future Test Test Name Order Date COLONOSCOPY 08/18/2011 COLONOSCOPY 07/19/2016 COLONOSCOPY 02/14/2022 Next Appt Details Provider Name:Damon Wood , 04/15/2025 02:20:00 PM, [address] [place] [address], [address], [place], [address], Insurance Providers Payer Name Payer Address Payer Phone Subscriber Number Group Number Insured Name Patient Relationship to Insured Coverage Start Date Coverage End Date [facility] [address] [address] [place] [address] [phone] will call back with id number [id number] [id number] Self - patient is the insured Medical (General) History Medical History History ICD Code Colonoscopy 02-22-2001--negat ambrose; colonoscopy in 09/2011--1 small tubular adenoma, diverticulosis, internal hemorrhoids Hypothyroidism Denies TN,DM,CVA,Lung disease,renal dise ase Sleep apnea, for which she uses a CPAP m achine Leg pain from misalignment of the spin e Negative colonoscopy in 11/2016 Surgical History Surgery Date(Month/Year)
--- OUTSIDE RECORDS SUMMARY | 2025-01-15 06:58 | XMS_ITS | Encounter Summary ---
Author Organization [facility] Address [address] [place] [address] Phone Care Team Providers Care Lubricating Specialist Name Role Phone Benja Fernandez DO Primary Care Provider [phone] Benja Fernandez DO Unavailable Encounter Details Date Type Department Care Team (Late st Contact Info) Description 03/27/2018 Ancillary Orders Virtual Department [address] [place] [address] Joan Cedillo, BREANA Goodman. [address] [place] [address] [email or web address] Cough Social History Tobacco Use Types Packs/Day [...] - - - - - - POS [id number] Narrative 03/27/2018 5:23 PM EST Two views. [...] - - -- - - - POS [id number] May Nguyen TOUSSAINT IMG XR CHEST Final Result documented in this encounter Visit Diagnoses Diagnosis Cough Cough documented in this encounter Care Teams Lubricating Specialist Relationship Specialty Start Date End Date Benja Fernandez DO [email or web address] PCP - General Internal Medicine 03/27/18 Benja Fernandez DO [address] [place] [address] [email or web address] Insurance Assigned Provider 06/08/18 11/11/22 documented as of this encounter Additional Source Comments The information contained in this document represents components of the legal health record. It is not the complete legal health record.[facility]
--- OUTSIDE RECORDS SUMMARY | 2025-01-15 06:58 | XMS_ITS | Clinical Summary ---
Author Organization [facility] Address [address] [place] [address] Phone Care Team Providers Care Customer Relations Coordinator Name Role Phone RichieBenja gibson Patt TUTTLE Primary Care Provider [phone] Social History Tobacco Use Types Packs/Day Years [...] file Medical Devices Not on file [facility] H[facility] POS Member Subscriber Plan / Payer (Ef fective 2008-Present) Name:Rose Nicole Relation to Subscriber:Spouse Name:ROMMEL NICOLE Date of :1956 (Home) Address: [place], [place] Payer ID:[id number] (NAIC) Type:HMO Address: [address] [employer], [place] [facility] HMO POS Member Subscriber Plan / Payer (Ef fective 2008-Present) Name:Rose Nicole Relation to Subscriber:Spouse Name:ROMMEL NICOLE Date of :1956 (Home) Address: [place], [place] Payer ID:[id number] (NAIC) Type:HMO Address: [address] [employer], [place], [place] [facility] HMO POS [place], [place] [facility] HMO POS [place] [facility] HMO POS [facility] HMO POS [facility] HMO POS [facility] Care Teams Customer Relations Coordinator Relationship Specialty Start Date End Date Benja Fernandez DO [email or web address] PCP - General Internal Medicine 03/27/18 Additional Source Comments The information contained in this document represents components of the legal health record. It is not the complete legal health record.[facility]
[2025-01-15 07:18] LABS: MANUAL DIFF FLAG NO
[2025-01-15 07:56] LABS: Hematocrit 40.2 % (37.0-47.0); Hemoglobin 13.4 g/dl (12.0-16.0); Imm Gran Abs Auto 0.03 X10*3/uL (0.00-0.03); Imm Gran Pct Auto 0.4 % (0.0-0.4); Lymphocytes Absolute Auto 1.4 X10*3/uL (1.2-4.9); Mean Corpuscular HGB Conc 33.3 g/dl (31.0-35.0); Mean Corpuscular Hemoglobin 31.2 pg (27.0-33.0); Mean Corpuscular Volume 93.7 fL (80.0-98.0); NRBC Abs Auto 0.000 X10*3/uL (0.0-0.012); NRBC Pct Auto 0.0 /100WBC (0.0-0.2); Platelet Count 215 X10*3/uL (160-400); Red Blood Count 4.29 X10*6/uL (4.20-5.50); White Blood Count 6.9 X10*3/uL (4.8-10.8)
[2025-01-15 08:33] LABS: Alanine Aminotransferase 19 U/L (0-31); Albumin Level 4.2 g/dL (3.5-5.0); Alkaline Phosphatase 86 U/L (39-117); Anion Gap 9 (12-20); Aspartate Amino Transferase 21 U/L (5-31); Blood Urea Nitrogen 12 mg/dL (9-16); Calcium 9.4 mg/dL (8.4-10.2); Carbon Dioxide 26 mmol/L (22-29); Chloride 110 mmol/L (96-108); Estimated Glomerular Filt Rate > 60; Potassium 4.0 mmol/L (3.3-5.1); Sodium 141 mmol/L (135-145); Total Protein 7.0 g/dL (6.5-8.0)
[2025-01-15 09:06] LABS: Folate 8.9 ng/mL (> or = 4.0); Vitamin B12 710 pg/mL (200-900)
== END 2025-01-15 06:56 ==
LOC: HO.LAB 06:55
PROVIDERS: PCP Internal Medicine; Visit Provider Physician Assistant
DX: Z00.00 Encounter for general adult medical examination without abnormal findings (principal); Z13.0 Encounter for screening for diseases of the blood and blood-forming organs and certain disorders involving the immune mechanism; Z81.8 Family history of other mental and behavioral disorders
CPT/HCPCS: 36415; 80053; 82542; 82607; 82746; 83090; 84443; 84445; 84481; 85025; 86376